=== PATIENT | male | born 1975 | race African-American/Black ===

== ENCOUNTER 2023-08-07 21:16 | Outpatient (CLI) | payer OTHER, SELFPAY ==
--- NOTE | 2023-09-13 09:31 | P.SLS_ITS ---
Sleep Study Details Details Interpreting Provider: Doni Date of Sleep Study: 08/07/23 Sleep Study Details: STUDY TYPE:? Hospital-based with CPAP titration BMI:? 35.9 ORDERING PROVIDER:? Doni INDICATION:? Concerns about sleep apnea ? SLEEP SUMMARY:? 376 minutes total sleep time RESPIRATORY SUMMARY:? Mean oxygen awake 98, asleep 96, minimum 88. 0.1 minute o xygen between 80 and 88% AHI 51 the entire diagnostic portion of study was done in the nonsupine position. CPAP titration was performed to a pressure of 11 which included 42 minutes of supine REM sleep and decreased AHI to 3.6. This was in the supine position. This is a successful CPAP titration PERIODIC LIMB MOVEMENTS OF SLEEP:? Pre treatment index 4.5, index with arousal 0.5 Post treatment index 1.4, index with arousal 0.5 CARDIAC:? Awake 73 asleep 65 PVCs were noted IMPRESSION:? Severe obstructive sleep apnea with successful CPAP titration at a pressure of 11. RECOMMENDATION: Initiate CPAP pressure of 11 or AutoSet pressure range 8-17.
== END 2023-08-07 21:17 | disposition home or self-care (01) ==
LOC: SLEEP 21:24
PROVIDERS: Visit Provider Otolaryngology
DX: G47.33 Obstructive sleep apnea (adult) (pediatric) (principal)
CPT/HCPCS: 95811